=== PATIENT | male | born 1975 | race Caucasian/White ===

== ENCOUNTER 2024-07-25 09:36 | Emergency (ER) | payer OTHER, SELFPAY ==
[2024-07-25 10:09] VITALS: BP 112/90; PULSE 80; RESP 18; TEMP 36.2; O2SAT 98
--- NOTE | 2024-07-25 10:57 | ED.WOUNDLAC ---
HPI - Wound/Laceration General Chief Complaint: Wound/Laceration Stated Complaint: lac to head Time Seen by Provider: 07/25/24 09:43 Source: patient Mode of arrival: ambulatory Limitations: no limitations History of Present Illness HPI narrative: This is a 48-year-old male that presents to the emergency department for a laceration to his scalp. Reports he was opening the back of his trailer. The metal arm came back down and hit him on the head. He sustained a laceration. He is unsure of his last tetanus vaccination. He did not lose consciousness. Denies vision changes, vomiting, numbness, weakness. Related Data Allergies Allergy/AdvReac Type Severity Reaction Status Date / Time iodine Allergy Unknown Swelling Verified 07/25/24 09:37 Review of Systems Review of Systems: CONSTITUTIONAL: Denies fever EYES: Denies visual changes GASTROINTESTINAL: Denies vomiting NEUROLOGIC: Denies numbness, or weakness. All systems reviewed & are unremarkable except as noted in HPI and below PMFSH Past Medical History Medical History (Updated 07/25/24 @ 11:03 by Adrianne Ramos PA-C) History of melanoma Social History Social History (Updated 07/25/24 @ 10:59 by Adrianne Ramos PA-C) Smoking status: Current every day smoker Exam Narrative: GENERAL: Well-appearing, well-nourished, and in no acute distress. HEAD: Normocephalic. 2 cm linear laceration to the left side of the scalp EYES: PERRLA and EOMI. ENT: Nares clear, no rhinorrhea or epistaxis. Mucous membranes moist. Oropharynx without tonsillar hypertrophy exudate or other lesions. Bilateral TMs pearly horn non-bulging NECK: Supple. No adenopathy or masses. CHEST: Clear to auscultation. No respiratory distress. No wheezes rales or rhonchi HEART: Regular rate and rhythm. No murmur heard. Normal peripheral pulses. EXTREMITIES: Normal range of motion. No edema. SKIN: Warm, dry, no rash. NEURO: No focal deficits. Alert and oriented x3. Cranial nerves 2-12 grossly intact PSYCH: Normal mood and affect Course Course Emergency Course: Patient educated on further wound care Vital Signs Vital signs: Vital Signs Temperature 97.1 F L 07/25/24 10:09 Pulse Rate 80 07/25/24 10:09 Respiratory Rate 18 07/25/24 10:09 Blood Pressure 112/90 07/25/24 10:09 Pulse Oximetry 98 07/25/24 10:09 Oxygen Delivery Room Air 07/25/24 10:09 Temperature 97.1 F L 07/25/24 10:09 Pulse Rate 80 07/25/24 10:09 Respiratory Rate 18 07/25/24 10:09 Blood Pressure 112/90 07/25/24 10:09 Pulse Oximetry 98 07/25/24 10:09 Oxygen Delivery Room Air 07/25/24 10:09 Procedures Laceration Laceration 1: Date: 07/25/24 Time: 11:00 Site: scalp Size (cm): 2 Description: linear Depth: simple, single layer Pre-repair: irrigated ====== Skin Level ====== Skin layer closed with: dermabond ====== Subcutaneous Layer ====== ====== Muscle Layer ====== ====== Tendon Layer ====== MDM - Wound/Laceration MDM Narrative Medical decision making narrative: Patient presents to the emergency department for laceration to his scalp. He is neurologically intact. His wound was irrigated and closed with Dermabond. Patient updated on tetanus vaccination. Educated on further wound care. He is to follow up with primary provider. He was given warnings to return to the ER Differential Diagnosis Differential diagnosis: Likely laceration and abrasion Critical Care Time Critical Care Time Critical Care Time: No Discharge Plan Discharge Clinical Impression: Laceration Patient Disposition: Home, Self-Care Condition: Stable Instructions: Laceration (ED), Skin Adhesive Care (ED) Additional Instructions: Return to the emergency department if you experience fever, redness or swelling of your wound, abnormal drainage from your wound, or any other symptoms that are concerning to you. You
[2024-07-25] MEDS: TETANUS,DIPHTHERIA,AC PERTUSSIS ADULT (0.5 ML) BOOSTRIX IM (11:09)
== END 2024-07-25 11:13 | disposition home or self-care (01) ==
PROVIDERS: Emergency Provider Physician Assistant
DX: S01.01XA Laceration without foreign body of scalp, initial encounter (principal); Z23 Encounter for immunization; F17.200 Nicotine dependence, unspecified, uncomplicated; Z85.820 Personal history of malignant melanoma of skin; W20.8XXA Other cause of strike by thrown, projected or falling object, initial encounter
CPT/HCPCS: 12001; 90471; 90715; 99282

== ENCOUNTER 2025-09-14 06:34 | Emergency (ER) | payer MEDICAID, SELFPAY ==
[2025-09-14] VITALS (14 sets, daily range): BP systolic 133–172; BP diastolic 78–111; PULSE 45–61; RESP 13–19; TEMP 36.7; O2SAT 97–100
--- NOTE | ~2025-09-14 | CT_ITS ---
EXAMINATION: CT brain wo con DATE: 09/14/2025 08:16 INDICATION: Headache and syncope post fall TECHNIQUE: Computed tomography (CT) of the head was performed without intravenous contrast. Sagittal and coronal reconstructions were performed. The mA was adjusted according to patient size. Iterative reconstruction technique was employed. The dose-length product was 605.33 mGy-cm. COMPARISON: None FINDINGS: No fracture. Large heterogeneously high attenuation contrast parenchyma hemorrhage in the right frontal lobe measuring 4.8 x 4.7 x 4.1 cm. This results in significant local mass effect with effacement of the adjacent sulci and up to 7 mm right left midline shift of the anterior septum pellucidum. There is an additional intraparenchymal hemorrhage at the left peritrigonal region measuring 3.1 x 2.5 x 1.8 cm with extension of blood into the adjacent occipital horn of the left lateral ventricle. Finally there is a smaller 2.1 x 1.4 x 1.4 cm predominantly intraparenchymal hemorrhage with minimal associated subarachnoid hemorrhage in the left parietal lobe. There are regions of vasogenic edema surrounding each of the hemorrhages. No evident loss of horn-white matter differentiation to suggest acute ischemic infarct. The ventricles remain normal in size of some architectural distortion resulting from the right frontal lobe intraparenchymal hemorrhage. Aside from the intraparenchymal hemorrhages no oth er masses identified. The orbits, paranasal sinuses and mastoid air cells are normal. IMPRESSION: 1. 3 intraparenchymal hemorrhages, the largest in the right frontal lobe resulting in up to 7 mm [id number] midline shift at the anterior septum pellucidum with smaller hematomas in the left parietal and left peritrigonal regions, the former with minimal associated subarachnoid hemorrhage in the abhishek dder with intraventricular extension into the left lateral ventricle. Dr. Borges discussed these findings with Dr. Pride at 8:15 AM. Reviewed, dictated and finalized at location A. MOTIVE MACHINIST IMPRESSION: 1. 3 intraparenchymal hemorrhages, the largest in the right frontal lobe result ing in up to 7 mm [id number] midline shift at the anterior septum pellucidum with smaller hematomas in the left parietal and left peritrigonal regions, the former with minimal associated subarachnoid hemorrhage in the bladder with int raventricular extension into the left lateral ventricle. Dr. Borges discussed these findings with Dr. Pride at 8:15 AM.
--- NOTE | ~2025-09-14 | XR_ITS ---
EXAMINATION: XR chest 1V portable COMPARISON: No comparisons available. HISTORY: syncope FINDINGS: Scattered bilateral small infiltrates superimposed on chronic lung disease. No pneumothorax. Heart is normal size. Mediastinal and hilar contours are within normal limits. Bony thorax no acute abnormality. Miscellaneous: None Impression: Bilateral pneumonia Reviewed, dictated and finalized at location P. DENT CARE TECHNICIAN Impression: Bilateral pneumonia
--- NOTE | ~2025-09-14 | CT_ITS ---
EXAMINATION: CT cervical spine wo con COMPARISON: None HISTORY: fall TECHNIQUE: Axial images were obtained through the spine without IV contrast. Coronal, sagittal reconstruction images were obtained from the axial views. CT scan performed using dose optimization techniques including the following automated exposure control; adjustment of mA and/or kV; use of iterative reconstruction technique. Automatic exposure control was used to reduce radiation dose. Permanent radiation dose record is archived to PACS. FINDINGS: The vertebral heights are intact. No fracture or subluxation. Moderate loss of disc height at C5-6 with mild to moderate canal and foraminal stenosis. Soft tissues unremarkable.Apical scarring noted in the lungs bilaterally. Impression: No acute abnormality. Reviewed, dictated and finalized at location P. BULANCE PARAMEDIC Impression: No acute abnormality.
--- NOTE | 2025-09-14 06:35 | ECG_ITS ---
Test Date: 2025-09-14 06:44:24 Measurements Intervals Aspers Rate: 58 P: 267 CO: 120 QRS: 49 QRSD: 105 T: 54 QT: 415 QTc: 411 Interpretive Statements CONSIDER LEAD MISPLACEMENT No previous ECG available for comparison Electronically Signed On 09-14-2025 08:37:59 LAP MACHINE OPERATOR by Oren Quispe M.D.
[2025-09-14 06:50] LABS: Hematocrit 47.1 % (42.0-52.0); Hemoglobin 16.2 g/dL (14.0-18.0); Immature Granulocyte Percent A 2.0 % (0-0.5); Lymphocytes Absolute Auto 0.91 K/mm3 (0.9-3.2); Mean Corpuscular HGB Conc 34.4 g/dl (32-36); Mean Corpuscular Hemoglobin 31.3 pg (26-34); Mean Corpuscular Volume 90.9 fl (80-100); Nucleated Red Blood Cells Absolute Auto 0.000 K/mm3 (0.0-0.012); Nucleated Red Blood Cells Perc 0.0 % (0.0-0.2); Platelet Count Result 262 k/mm3 (150-375); Red Blood Count 5.18 M/mm3 (4.6-6.20); White Blood Count 18.7 K/mm3 (4.5-10.0)
[2025-09-14 06:59] LABS: Alanine Aminotransferase 125 U/L (6-50); Albumin Level 4.0 g/dL (3.5-5.1); Alkaline Phosphatase 180 U/L (38-126); Anion Gap 7 mmol/L (4-12); Aspartate Amino Transferase 45 U/L (17-59); Bilirubin,Total 1.0 mg/dL (0.2-1.3); Blood Urea Nitrogen 21 mg/dL (9-20); Calcium 9.2 mg/dL (8.4-10.2); Carbon Dioxide 27 mmol/L (22-30); Chloride 100 mmol/L (98-107); Estimated CRCL calculation 144 ml/min; Estimated Glomerular Filt Rate > 60; Glucose 131 mg/dL (65-110); Potassium 4.6 mmol/L (3.4-5.0); Sodium 134 mmol/L (137-145); Total Protein 7.1 g/dL (6.3-8.2)
--- NOTE | 2025-09-14 07:16 | ED.DIZZY ---
HPI - Dizziness General Chief Complaint: Syncope Stated Complaint: syncope Time Seen by Provider: 09/14/25 07:13 Source: patient Mode of arrival: ambulatory Limitations: no limitations History of Present Illness HPI Narrative: 50 years old white male came to the ED by ambulance from home with syncope. History of cancer with liver Mets and bone Mets. The patient and his family would like to go to [facility] as soon as possible. Patient got up go to the bathroom, felt dizzy then blacked out struck his head on the floor, complaining of headache. Denies other injuries. Related Data Allergies Allergy/AdvReac Type Severity Reaction Status Date / Time shellfish derived Allergy Severe Anaphylactic Verified 09/14/25 07:59 Shock iodine Allergy Unknown Swelling Verified 09/14/25 07:59 Review of Systems Review of Systems: All systems reviewed & are unremarkable except as noted in HPI and below PMFSH Past Medical History Medical History History of melanoma Social History Social History Smoking status: Current every day smoker Exam Narrative: General appearance: Well-developed, well-nourished Skin: Normal color Head: Normocephalic, left forehead bruises Eyes: Clear conjunctiva ENT: Oropharynx normal, ears normal, nose normal Neck: Supple, nontender Chest and respiratory: Airway patent, no respiratory distress, no accessory muscle use Heart: Regular rate/rhythm Abdomen: Soft, nontender, no organomegaly, quiet bowel sounds Vascular: Normal peripheral pulses, normal capillary refill. Musculoskeletal: Normal range of motion, nontender back Neurologic: Alert and oriented ?3, BOOKING AGENT is normal as tested, no gross motor deficit Course Consultations Consultation #1: DR FIELDS, TRAUMA AT [facility] ACCEPTED PATIENT Date: 09/14/25 Consultation #2: DR AGUDELO, EMERGENCY ROOM PHYSICIAN AT [facility], ACCEPTED PATIENT Date: 09/14/25 Vital Signs Vital signs: Vital Signs Temperature 36.7 C 09/14/25 06:36 Pulse Rate 61 09/14/25 06:36 Respiratory Rate 13 09/14/25 06:36 Blood Pressure 147/86 H 09/14/25 06:36 Pulse Oximetry 100 09/14/25 06:36 Temperature 36.7 C 09/14/25 08:28 Pulse Rate 48 L 09/14/25 09:31 Respiratory Rate 16 09/14/25 09:31 Blood Pressure 172/83 H 09/14/25 09:31 Pulse Oximetry 98 09/14/25 09:31 MDM - Dizziness MDM Narrative Medical decision making narrative: PATIENT PRESENTS WITH DIZZINESS AND SYNCOPE AND A FALL VITAL SIGNS SHOWING BLOOD PRESSURE 147/86 OTHERWISE WITHIN NORMAL LIMIT PHYSICAL EXAMINATION SHOWING AN ILL-LOOKING PATIENT COMPLAINING OF LEFT FRONTAL HEADACHE DIFFERENTIAL DIAGNOSIS INCLUDE INTRACRANIAL BLEED, NECK FRACTURE, ELECTROLYTE IMBALANCE, DEHYDRATION, ORTHOSTATIC HYPOTENSION, URINARY TRACT INFECTION, PNEUMONIA, PROGRESSION OF CANCER, BRAIN METASTASIS BLOOD WORKUP TODAY INCLUDES CBC, CMP, SHOWED WBC 18.7, ALT 125, ALKALINE PHOSPHATASE 180 OTHERWISE WITHIN NORMAL LIMIT CHEST X-RAY SHOWED BILATERAL PNEUMONIA CT CERVICAL SPINE SHOWED NO ACUTE ABNORMALITY CT HEAD WITHOUT CONTRAST SHOWED INTRAPARENCHYMAL HEMORRHAGE WITH MIDLINE SHIFT TRANSFERRED TO [facility]. Differential Diagnosis Differential diagnosis: Likely other ( ABOVE) Lab Data Attestation: I reviewed the patient's lab results. 09/14/25 06:43 09/14/25 06:43 Labs: Lab Results 09/14/25 Range/Units 06:43 WBC 18.7 H (4.5-10.0) K/mm3 RBC 5.18 (4.6-6.20) M/mm3 Hgb 16.2 (14.0-18.0) g/dL Hct 47.1 (42.0-52.0) % MCV 90.9 (80-100) fl MCH 31.3 (26-34) pg MCHC 34.4 (32-36) g/dl RDW 14.6 H (11.5-14.5) % Plt Count 262 (150-375) k/mm3 MPV 8.4 (7.4-10.4) fl Immature Gran % (Auto) 2.0 H (0-0.5) % Neut % (Auto) 86.1 H (45.5-73.1) % Lymph % (Auto) 4.9 L (18.3-44.2) % [place] % (Auto) 6.6 (2.6-8.5) % Eos % (Auto) 0.1 (0-4.4) % Baso % (Auto) 0.3 (0.2-1.2) % Lymph # (Auto) 0.91 (0.9-3.2) K/mm3 [place] # (Auto) 1.2 H (0.1-0.6) K/mm3 Eos # (Auto) 0.0 (0-0.3) K/mm3 Baso # (Auto) 0.1 (0.0-0.1) K/mm3 Abs Immat Gran (auto) 0.38 H (0.00-0.031) K/mm3 Absolute Neuts (auto) 16.1 H (1.3-6.7) K/mm3 Absolute Nucleated RBC 0.000 (0.0-0.012) K/mm3 Nucleated RBC % 0.0 (0.0-0.2) % Sodium 134 L (137-145) mmol/L Potassium 4.6 (3.4-5.0) mmol/L Chloride 100 (98-107) mmol/L Carbon Dioxide 27 (22-30) mmol/L Anion Gap 7 (4-12) mmol/L BUN 21 H (9-20) mg/dL Creatinine 0.57 L (0.7-1.3) mg/dL Estim Creat Clear Calc 144 ml/min Estimated GFR > 60 (59 - ) Glucose 131 H (65-110) mg/dL Calcium 9.2 (8.4-10.2) mg/dL Total Bilirubin 1.0 (0.2-1.3) mg/dL AST 45 (17-59) U/L ALT 125 H (6-50) U/L Alkaline Phosphatase 180 H (38-126) U/L Troponin I < 0.012 (0.000-0.034) ng/mL Total Protein 7.1 (6.3-8.2) g/dL Albumin 4.0 (3.5-5.1) g/dL Imaging Data Radiologist's impression: Impressions Head CT 09/14/25 08:19 IMPRESSION: 1. 3 intraparenchymal hemorrhages, the largest in the right frontal lobe resulting in up to 7 mm [id number] midline shift at the anterior septum pellucidum with smaller hematomas in the left parietal and left peritrigonal regions, the former with minimal associated subarachnoid hemorrhage in the bladder with intraventricular extension into the left lateral ventricle. Dr. Borges discussed these findings with Dr. Pride at 8:[address] 09/14/25 08:22 Impression: No acute abnormality. Chest X-Ray 09/14/25 08:30 Impression: Bilateral pneumonia Critical Care Time Critical Care Time Critical Care Time: Yes Total Critical Care Time: 30 Discharge Plan Discharge Clinical Impression: Intracranial bleed Patient Disposition: Acute Care Hospital Condition: Stable Additional Instructions: TRANSFERRED TO [facility] Patient Language: Fijian Follow-up/Referrals: PHYSICIAN,SALES DONOR RECRUITMENT REPRESENTATIVE [Primary Care Provider, Internal Medicine]
[2025-09-14] MEDS: ONDANSETRON INJ 4 MG/2 ML VIAL IV PUSH (08:03)
[2025-09-14] MEDS: HYDROmorphone HCL INJ (*CRX) 1 MG/ML SYR 0.5 MG IV PUSH (08:04)
[2025-09-14 08:05] LABS: Troponin I < 0.012 ng/mL (0.000-0.034)
[2025-09-14] MEDS: SODIUM CHLORIDE 0.9% IV 1,000 ML 100 ML IV CONT (08:06)
--- NOTE | 2025-09-14 10:00 | PC.NURSE ---
pt requested to be transferred to [facility] in his clothing and not change into the gown, pt is A&OX4
== END 2025-09-14 10:00 | disposition short-term general hospital (02) ==
PROVIDERS: Emergency Provider Emergency Medicine
DX: S06.300A Unspecified focal traumatic brain injury without loss of consciousness, initial encounter (principal); C78.7 Secondary malignant neoplasm of liver and intrahepatic bile duct; C79.51 Secondary malignant neoplasm of bone; J18.9 Pneumonia, unspecified organism; F17.200 Nicotine dependence, unspecified, uncomplicated; Z85.820 Personal history of malignant melanoma of skin; W18.39XA Other fall on same level, initial encounter
CPT/HCPCS: 36415; 70450; 71045; 72125; 80053; 84484; 85025; 93005; 96361; 96374; 96375; 99285; J1171; J2405; J7030